=== PATIENT | female | born 1960 | race Caucasian/White ===

== ENCOUNTER 2023-12-17 14:17 | Emergency (ER) | payer OTHER ==
--- NOTE | 2023-12-17 14:39 | EDPHYS ---
Physician Documentation [facility] Name: Jaja Gaines Age: 63 yrs Sex: Female : 1960 Arrival Date: 12/17/2023 Time: 14:17 Bed DX3 Private MD: ED Physician Oni Helton HPI: 12/16 21:28 This 63 yrs old Female presents to ER via Ambulatory with complaints of Insect Bite. ms3 21:28 63-year-old female with past medical history of hypertension and diverticulitis ms3 presents to the emergency department for insect bite on her left leg that is red. Patient rates her discomfort an 8/10. She denies any alleviating or inciting factors. Patient also notes she has an insect bite on her right forearm. Historical: - Allergies: 14:33 PENICILLINS; as6 - PMHx: 14:33 Hypertensive disorder; Diverticulitis; as6 - Immunization history:: Adult Immunizations up to date. - Infectious Disease History:: Denies. - Social history:: Smoking status: Patient reports the use of cigarette tobacco products, smokes one-half pack cigarettes per day. ROS: 21:28 Constitutional: Negative for fever, and chills. Cardiovascular: Negative for chest ms3 pain, and palpitations. Respiratory: Negative for shortness of breath, cough, wheezing, and pleuritic chest pain, Abdomen/GI: Negative for abdominal pain, nausea, vomiting, diarrhea, and constipation, MS/Extremity: Negative for injury and deformity, 21:28 Skin: Positive for rash, Exam: 21:28 Constitutional: This is a well developed, well nourished patient who is awake, alert, ms3 and in no acute distress. Head/Face: Normocephalic, atraumatic. Neck: Trachea midline, no cervical lymphadenopathy. Supple, full range of motion without nuchal rigidity, or vertebral point tenderness. No Meningismus. Chest/axilla: Normal chest wall appearance and motion. Nontender with no deformity. Cardiovascular: Regular rate and rhythm with a normal S1 and S2. No gallops, murmurs, or rubs. Normal PMI, no JVD. No pulse deficits. Respiratory: Lungs have equal breath sounds bilaterally, clear to auscultation and percussion. No rales, rhonchi or wheezes noted. No increased work of breathing, no retractions or nasal flaring. Abdomen/GI: Soft, non-tender, with normal bowel sounds. No distension or tympany. No guarding or rebound. No evidence of tenderness throughout. 21:28 Skin: cellulitis, that is mild, well demarcated, on the left leg, Vital Signs: 14:31 BP 115 / 82; Pulse 71; Resp 18; Temp 97.8; Pulse Ox 100% ; Weight 62.6 kg; Height 5 ft. as6 9 in. ; Pain 8/10; 14:31 Body Mass Index 20.38 (62.60 kg, 175.26 cm) as6 14:31 Pain Scale: Adult as6 MDM: 14:35 Patient medically screened. ms3 21:28 Differential diagnosis: Insect bite versus cellulitis. Data reviewed: vital signs, ms3 nurses notes, and as a result, I will discharge patient. I considered the following discharge prescriptions or medication management in the emergency department Medications were administered in the Emergency Department. See MAR. Counseling: I had a detailed discussion with the patient and/or guardian regarding the historical points, exam findings, and any diagnostic results supporting the discharge/admit diagnosis, the need for outpatient follow up, to return to the emergency department if symptoms worsen or persist or if there are any questions or concerns that arise at home. Special discussion: I discussed with the patient/guardian in detail that at this point there is no indication for admission to the hospital. It is understood, however, that if the symptoms persist or worsen the patient needs to return immediately for re-evaluation. ED course: Discussed physical exam findings with patient. Patient to follow-up with her primary care physician in 2 to 3 days. Patient understands and agrees with plan. All questions were answered. Return precautions discussed include worsening symptoms, or any other concerns. Administered Medications: 14:55 Drug: Doxycycline PO 100 mg PO once Route: PO; cm10 14:55 Follow up: Response: Medication administered at discharge. cm10 Disposition Summary: 12/17/23 14:38 Discharge Ordered Notes: Location: Home ms3 Condition: Stable ms3 Diagnosis - Cellulitis of left lower limb ms3 - Insect bite (nonvenomous) of right forearm ms3 Followup: ms3 - With: Abdirizak Serna, DO - When: 2 - 3 days - Reason: Recheck today's complaints Discharge Instructions: - Discharge Summary Sheet ms3 - Insect Bite, Adult, [id number] ms3 - Cellulitis, Adult ms3 Forms: - Medication Reconciliation Form ms3 - Antibiotic Education ms3 - Prescription Opioid Use ms3 - Patient Portal Instructions ms3 - Leadership Thank You Letter ms3 Prescriptions: - Doxycycline Hyclate 100 mg Oral Tablet - take 1 tablet ORAL route every 12 hours; 20 tablet; Refills: 0, Product ms3 Selection Permitted Signatures: Oni Helton DO DO ms3 Anthony Dillon RN RN as6 Chica Pacheco RN RN cm10
--- NOTE | 2023-12-17 14:39 | ER ---
Nurse's Notes [facility] Name: Jaja Gaines Age: 63 yrs Sex: Female : 1960 Arrival Date: 12/17/2023 Time: 14:17 Bed DX3 Private MD: Diagnosis: Cellulitis of left lower limb;Insect bite (nonvenomous) of right forearm Presentation: 12/16 14:31 Chief complaint: Patient states: bit by an unknown insect to her left leg and right as6 arm. Coronavirus screen: At this time, the client does not indicate any symptoms associated with coronavirus-19. Ebola Screen: No symptoms or risks identified at this time. Initial Sepsis Screen: Does the patient meet any 2 criteria? No. Patient's initial sepsis screen is negative. Does the patient have a suspected source of infection? No. Patient's initial sepsis screen is negative. Risk Assessment: Do you want to hurt yourself or someone else? Patient reports no desire to harm self or others. Onset of symptoms was December 16, 2023. 14:31 Acuity: ELISA 4 as6 14:31 Method Of Arrival: Ambulatory as6 Triage Assessment: 14:56 Bite description: bite sustained to right arm and left leg by an unknown animal, animal cm10 information: vaccination(s) is not applicable. General: Appears in no apparent distress. comfortable, Behavior is calm, cooperative. Pain: Denies pain. Neuro: No deficits noted. Level of Consciousness is awake, alert, obeys commands, Oriented to person, place, time, situation, Appropriate for age. Respiratory: No deficits noted. Airway is patent Respiratory effort is even, unlabored, Respiratory pattern is regular, symmetrical. Derm: Insect bite to right forearm and left lower leg. Musculoskeletal: No deficits noted. Range of motion: intact in all extremities. Historical: - Allergies: 14:33 PENICILLINS; as6 - PMHx: 14:33 Hypertensive disorder; Diverticulitis; as6 - Immunization history:: Adult Immunizations up to date. - Infectious Disease History:: Denies. - Social history:: Smoking status: Patient reports the use of cigarette tobacco products, smokes one-half pack cigarettes per day. Screenin:57 [facility] ED Fall Risk Assessment (Adult) History of falling in the last 3 months, cm10 including since admission No falls in past 3 months (0 pts) Confusion or Disorientation No (0 pts) Intoxicated or Sedated No (0 pts) Impaired Gait No (0 pts) Mobility Assist Device Used No (0 pt) Altered Elimination No (0 pt) Score/Fall Risk Level 0 - 2 = Low Risk Oriented to surroundings, Maintained a safe environment, Hourly rounding (assess needs \T\ fall precautionary measures) done. Abuse screen: Denies threats or abuse. Denies injuries from another. Nutritional screening: No deficits noted. Tuberculosis screening: No symptoms or risk factors identified. Assessment: 14:58 Derm: Skin is healthy with good turgor, Skin is pink, warm \T\ dry. cm10 Vital Signs: 14:31 BP 115 / 82; Pulse 71; Resp 18; Temp 97.8; Pulse Ox 100% ; Weight 62.6 kg; Height 5 ft. as6 9 in. ; Pain 8/10; 14:31 Body Mass Index 20.38 (62.60 kg, 175.26 cm) as6 14:31 Pain Scale: Adult as6 ED Course: 14:19 Patient arrived in ED. im 14:28 Oni Helton DO is Attending Physician. ms3 14:33 Triage completed. as6 14:34 Arm band placed on. as6 14:36 Abdirizak Serna DO is Referral Physician. ms3 14:57 Patient has correct armband on for positive identification. Provided Education on: ER cm10 process and procedures.. Cardiac monitoring not applicable on this patient. 14:57 No provider procedures requiring assistance completed. Patient did not have IV access cm10 during this emergency room visit. Administered Medications: 14:55 Drug: Doxycycline PO 100 mg PO once Route: PO; cm10 14:55 Follow up: Response: Medication administered at discharge. cm10 Medication: 14:57 VIS not applicable for this client. cm10 Outcome: 14:38 Discharge ordered by MD. ms3 14:57 Discharged to home ambulatory, cm10 14:57 Condition: good 14:57 Discharge instructions given to patient, Instructed on discharge instructions, follow up and referral plans. medication usage, Demonstrated understanding of instructions, follow-up care, medications, Prescriptions given X 1, 14:58 Patient left the ED. cm10 Signatures: Oni Helton DO DO ms3 Anthony Dillon RN RN as6 Angéilca Frias Clarissa, RN RN cm10
[2023-12-17] MEDS ORDERED: DOXYCYCLINE 100 MG CAP PO ONE (14:47)
[2023-12-17 15:39] VITALS: BP 115/82; TEMP 97.8; O2SAT 100
== END 2023-12-17 14:58 | disposition home or self-care (01) ==
LOC: ER 14:17
DX: S50.862A Insect bite (nonvenomous) of left forearm, initial encounter (principal); L03.114 Cellulitis of left upper limb; F17.210 Nicotine dependence, cigarettes, uncomplicated; K57.92 Diverticulitis of intestine, part unspecified, without perforation or abscess without bleeding; Z88.0 Allergy status to penicillin
CPT/HCPCS: 99283